=== PATIENT | female | born 1955 | race African-American/Black ===

== ENCOUNTER 2019-10-08 17:05 | Emergency (ER) | payer MEDICARE, MEDICAID ==
[~2019-10-08] VITALS: Ht 167.6 cm; Wt 83.9 kg
[2019-10-08 18:56] VITALS: BP 145/76
== END 2019-10-08 19:48 | disposition home or self-care (01) ==
LOC: ER 17:05
DX: S13.9XXA Sprain of joints and ligaments of unspecified parts of neck, initial encounter (principal); S33.5XXA Sprain of ligaments of lumbar spine, initial encounter; V49.9XXA Car occupant (driver) (passenger) injured in unspecified traffic accident, initial encounter; Y93.89 Activity, other specified; Y92.89 Other specified places as the place of occurrence of the external cause; Y99.8 Other external cause status
CPT/HCPCS: 71046; 72040; 72100